=== PATIENT | female | born 1930 | race Caucasian/White ===

== ENCOUNTER 2017-01-09 12:41 | Emergency (ER) | payer OTHER ==
[~2017-01-09] VITALS: Ht 165.1 cm; Wt 61.2 kg
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
--- NOTE | 2017-01-09 12:57 | NUR ---
LELE HEWITT AT BEDSIDE FOR EVAL.
[2017-01-09] MEDS ORDERED: ACETAMINOPHEN 325 MG TABLET PO ONE (13:00)
[2017-01-09] MEDS ORDERED: ACETAMINOPHEN 325 MG TABLET ONE (13:34)
--- NOTE | 2017-01-09 13:40 | NUR ---
PD AT BEDSIDE TALKING TO PT.
--- NOTE | 2017-01-09 14:28 | NUR ---
Patient discharged to home in stable condition. Written and verbal after care instructions given. Patient verbalizes understanding of instruction.
[2017-01-09 14:29] VITALS: BP 140/84
== END 2017-01-09 14:31 | disposition home or self-care (01) ==
LOC: ER 12:44
DX: S16.1XXA Strain of muscle, fascia and tendon at neck level, initial encounter (principal); Z79.82 Long term (current) use of aspirin; V43.62XA Car passenger injured in collision with other type car in traffic accident, initial encounter; Y93.89 Activity, other specified; Y92.488 Other paved roadways as the place of occurrence of the external cause; Y99.8 Other external cause status
CPT/HCPCS: 72040; 99284; A4606; Z7610